=== PATIENT | female | born 1985 | race Caucasian/White ===

== ENCOUNTER 2022-06-08 23:05 | Inpatient (IN) | payer SELFPAY ==
[2022-06-09 00:20] LABS: Fetal Membranes Rupture RUPTURE DETECTED (No Rupture)
[2022-06-09 01:16] LABS: Hemoglobin 10.3 g/dL (12.0-15.5); Mean Corpuscular HGB CONC 33.6 g/dL (32.0-36.0); Mean Corpuscular Volume 80.6 fl (81.6-98.3); Mean Platelet Volume 10.6 fl (7.4-10.4); Platelet Count 231 10x3/uL (150-450); Red Blood Cell (RBC) Count 3.81 10x6/uL (3.90-5.03); White Blood Cell (WBC) Count 12.3 10x3/uL (3.5-10.5)
[2022-06-09] MEDS ORDERED: Azithromycin 500 MG VIAL ONE (01:19)
[2022-06-09] MEDS ORDERED: CEFAZOLIN 2 GM VIAL ONE (01:19)
[2022-06-09] MEDS ORDERED: PHENYLEPHRINE-NS 100 MCG/ML 10 ML SYRINGE ONE (01:32)
[2022-06-09] MEDS ORDERED: Dexamethasone 4 mg/ml Vial ONE (01:32)
[2022-06-09] MEDS ORDERED: Morphine PF 10 MG/10 ML VIAL ONE (01:32)
[2022-06-09] MEDS ORDERED: Ondansetron PF 4 MG/2 ML Vial ONE (01:32)
[2022-06-09] MEDS ORDERED: Oxytocin 10 UNITS/ML VIAL ONE (01:32)
[2022-06-09 01:47] LABS: HBSAg Index 0.15 S/CO (0-0.99); Hep B Surf Ag Non-Reactive S/CO (NonReactive)
[2022-06-09 01:49] LABS: Syphilis Antibody Nonreactive (Nonreactive); Syphilis Antibody Index 0.06 S/CO (<1.00 Non-Reactive)
[2022-06-09] MEDS ORDERED: Ketorolac Tromethamine 30 MG/ML VIAL ONE (02:01)
[2022-06-09 02:08] LABS: SARS-CoV-2 NAA Rapid Test Not Detected (NotDetected)
[2022-06-09] MEDS ORDERED: Ketorolac Tromethamine 30 MG/ML VIAL IVP PRN (02:27)
[2022-06-09] MEDS ORDERED: diphenhydrAMINE 50 MG/ML VIAL IVP PRN (02:27)
[2022-06-09] MEDS ORDERED: Naloxone HCl 0.4 mg/ml Vial IVP PRN ×2 (02:27)
[2022-06-09] MEDS ORDERED: Naloxone HCl 0.4 mg/ml Vial IV PRN (02:27)
[2022-06-09] MEDS ORDERED: Promethazine HCl 25 MG SUPP PR PRN (02:27)
[2022-06-09] MEDS ORDERED: Moisturizing Cream (Eucerin) 113 GM JAR TOP PRN (02:27)
[2022-06-09] MEDS ORDERED: Promethazine HCl 25 MG/ML VIAL IM PRN ×3 (02:27→06:06)
[2022-06-09] MEDS ORDERED: Ondansetron PF 4 MG/2 ML Vial IVP PRN ×3 (02:27→06:06)
[2022-06-09] MEDS ORDERED: Communication Order-Pharmacy FS SCH (02:30)
[2022-06-09] MEDS ORDERED: Bicitra 30 ML UDCUP PO PRN (05:56)
[2022-06-09] MEDS ORDERED: Famotidine/PF 20 mg/2ml Vial SLOW IVP PRN (05:57)
[2022-06-09] MEDS ORDERED: CEFAZOLIN 2 GM in Sodium Chloride 0.9% 100 ML IVPB SCH (06:00)
[2022-06-09] MEDS ORDERED: Azithromycin 500 MG in Sodium Chloride 0.9% 250 ML 250 ML IVPB SCH (06:00)
[2022-06-09] MEDS ORDERED: Ibuprofen 800 MG TAB PO SCH (06:00)
[2022-06-09] MEDS ORDERED: hydrALAZINE 20 MG/ML VIAL SLOW IVP PRN ×2 (06:00→06:06)
[2022-06-09] MEDS ORDERED: Methylergonovine 0.2 MG/ML VIAL IM PRN (06:06)
[2022-06-09] MEDS ORDERED: diphenhydrAMINE 25 MG CAP PO PRN (06:06)
[2022-06-09] MEDS ORDERED: Varicella virus, LIVE 0.5 ML VIAL SC ONE (06:06)
[2022-06-09] MEDS ORDERED: Bisacodyl 10 MG SUPP PR PRN (06:06)
[2022-06-09] MEDS ORDERED: Measles/Mumps/Rubella 10 MCG/0.5 ML VIAL SC ONE (06:06)
[2022-06-09] MEDS ORDERED: Boostrix 0.5 ML (Tdap) VIAL (>/=7 yrs of age) IM ONE (06:06)
[2022-06-09] MEDS ORDERED: NS w/ Oxytocin 30 units 500 ML IV SCH (06:06)
[2022-06-09] MEDS ORDERED: Lanolin Ointment 7 GM TUBE TOP PRN (06:06)
[2022-06-09] MEDS ORDERED: Misoprostol 200 MCG TAB PR PRN (06:06)
[2022-06-09] MEDS: Lactated Ringer's 1,000 ML IV SCH ×3 (07:33→19:29)
[2022-06-09] MEDS: Ketorolac Tromethamine 30 MG/ML VIAL IVP PRN ×2 (08:49→15:47)
[2022-06-09] MEDS: Docusate 100 MG CAP PO SCH ×2 (08:49→22:08)
[2022-06-09] MEDS: Prenatal Vitamin 1 TAB PO SCH (08:49)
[2022-06-09] MEDS ORDERED: HYDROcodone/Acetaminophen 5/325 mg Tablet PO PRN (15:54)
[2022-06-09] MEDS: HYDROcodone/Acetaminophen 5/325 mg Tablet PO PRN (17:22)
[2022-06-09] MEDS: Ferrous Sulfate 325 MG TAB PO SCH ×2 (18:28→19:27)
[2022-06-09] MEDS: Ibuprofen 800 MG TAB PO SCH (22:04)
[2022-06-09] MEDS: Simethicone Chewable 80 MG TAB PO PRN (22:08)
[2022-06-10] MEDS: Lactated Ringer's 1,000 ML IV SCH (01:04)
[2022-06-10 04:26] LABS: Hemoglobin 8.4 g/dL (12.0-15.5); Mean Corpuscular HGB CONC 32.6 g/dL (32.0-36.0); Mean Platelet Volume 10.9 fl (7.4-10.4); Platelet Count 161 10x3/uL (150-450); RBC Distribution Width 14.1 % (11.5-14.5); Red Blood Cell (RBC) Count 3.11 10x6/uL (3.90-5.03)
[2022-06-10] MEDS: Ibuprofen 800 MG TAB PO SCH (05:18)
[2022-06-10] MEDS: Simethicone Chewable 80 MG TAB PO PRN (05:18)
[2022-06-10] MEDS: HYDROcodone/Acetaminophen 5/325 mg Tablet PO PRN ×2 (05:18→12:19)
[2022-06-10] MEDS: Ferrous Sulfate 325 MG TAB PO SCH (08:31)
[2022-06-10] MEDS: Prenatal Vitamin 1 TAB PO SCH (08:40)
[2022-06-10] MEDS: Docusate 100 MG CAP PO SCH (08:40)
[2022-06-10 11:36] VITALS: BP 106/56; TEMP 98
[2022-06-10] MEDS ORDERED: Zolpidem Tartrate 5 MG TAB PO PRN (14:30)
== END 2022-06-10 13:30 | disposition home or self-care (01) | DRG 788 ==
LOC: CSHLD/OP 23:05 → CSHLD 06-09 00:58 → CSHPP 06-09 05:40
PROVIDERS: ADMIT Obstetrics & Gynecology; ATTEND Obstetrics & Gynecology
PROC: 10D00Z1 Extraction of Products of Conception, Low, Open Approach (ICD-10-PCS; principal; 2022-06-09)
DX: O42.02 Full-term premature rupture of membranes, onset of labor within 24 hours of rupture (principal); Z37.0 Single live birth; Z3A.37 37 weeks gestation of pregnancy; Z20.822 Contact with and (suspected) exposure to COVID-19; F17.210 Nicotine dependence, cigarettes, uncomplicated; O99.334 Smoking (tobacco) complicating childbirth; O34.211 Maternal care for low transverse scar from previous cesarean delivery
CPT/HCPCS: 36415; 51702; 84112; 85027; 86780; 86850; 86900; 86901; 87340; 99285; J1100; J1885; J2274; J2405; J2590; J7120; U0002